=== PATIENT | male | born 1980 | race Two or more races ===

== ENCOUNTER 2017-06-04 03:13 | Emergency (ER) | payer OTHER ==
[~2017-06-04] VITALS: Ht 182.9 cm; Wt 90.7 kg
--- NOTE | 2017-06-04 03:20 | NUR ---
PT TO ER BED 7. PT BIB [facility], PER EMS PT HAD "AN EPISODE OF BEING ALTERED AND LAYING ON THE GROUND SCREAMING". PER PARAMEDICS FAMILY STATED PT "SMOKED SPICE". PT PLACED ON TOUR GUIDE. VSS/RESP EVEN UNLABORED/NAD NOTED/DENIES N-V-D/SKIN WARM AND DRY/AOX4. AWAITING MD FERNANDEZ.
--- NOTE | 2017-06-04 05:07 | NUR ---
PT SPEAKING WITH FAMILY AT BEDSIDE. VSS/RESP EVEN UNLABORED.
--- NOTE | 2017-06-04 05:56 | NUR ---
IV removed. Catheter intact and site benign. Pressure and 4x4 applied to site. No bleeding noted. Patient discharged to home in stable condition. Written and verbal after care instructions given. Patient verbalizes understanding of instruction. Patient ambulatory with a steady gait.
[2017-06-04 05:57] VITALS: BP 138/79
== END 2017-06-04 05:59 | disposition home or self-care (01) ==
LOC: ER 03:16
DX: F15.90 Other stimulant use, unspecified, uncomplicated (principal); R41.82 Altered mental status, unspecified
CPT/HCPCS: 82962 ×2; 99283; A4606; Z7610